=== PATIENT | female | born 1970 | race Caucasian/White ===

== ENCOUNTER 2019-03-19 15:04 | Emergency (ER) | payer MEDICAID ==
[~2019-03-19] VITALS: Ht 162.6 cm; Wt 63.5 kg
[2019-03-19 15:19] VITALS: BP 149/80; PULSE 83; RESP 16; Ht 162.6 cm; Wt 63.5 kg
--- NOTE | 2019-03-19 16:53 | ERD ---
ER Documentation Chief Complaint Chief Complaint EVALUATION FOR LUMP UNDER LT ARM HPI Patient is a 48-year-old female with no medical problems who presents with swelling under her left armpit. She has had this for about 1 month. She denies fevers. She denies pain. She has had no discharge from the area. She said that she has never had a mammogram. She says that her primary doctor is Dr. Howe. Dr. Howe had called and spoke to my partner and recommended imaging studies in case this is a cancerous lesion. ROS All systems reviewed and are negative except as per history of present illness. PMhx/Soc Medical and Surgical Hx: pt denies Medical Hx, pt denies Surgical Hx Hx Alcohol Use: No Hx Substance Use: No Hx Tobacco Use: No FmHx Family History: No diabetes Physical Exam Vitals Vital Signs Date Temp Pulse Resp B/P (MAP) Pulse Ox O2 O2 Flow FiO2 Time Delivery Rate 03/19/19 98.9 83 16 149/80 99 15:19 (103) Physical Exam Const: No acute distress Head: Atraumatic Eyes: Normal Conjunctiva ENT: Normal External Ears, Nose and Mouth. Neck: Full range of motion. No meningismus. Resp: Clear to auscultation bilaterally Cardio: Regular rate and rhythm, no murmurs Abd: Soft, non tender, non distended. Normal bowel sounds Skin: Soft tissue swelling approximately 1 cm x 1 cm underneath the left armpit, no fluctuance, no redness, no hardness Back: No midline or flank tenderness Ext: No cyanosis, or edema Neur: Awake and alert Psych: Normal Mood and Affect Procedures/MDM Patient is a 48-year-old female with no medical problems who presents with a soft tissue mass under her left armpit. She has never had a mammogram and I believe this would likely be a good idea for her to rule out breast cancer. I did offer her the CT scan of the chest as well as an ultrasound which I ordered but the patient is adamantly refusing at this time and would like to go home. She said that she does not want to wait the 2 hours for these test to be performed and said that she is hungry wants to go home and eat. I resulted Dr. Howe to let him know of the patient's decision. The patient can return for any worsening symptoms. I do believe that outpatient work-up would be appropriate. Departure Diagnosis: Primary Impression: Swelling Condition: Fair Patient Instructions: Breast Mass, Uncertain Cause Referrals: ALLISON HOWE MD Additional Instructions: Call your primary care doctor TOMORROW for an appointment during the next 1 WEEK.Tell the psychiatric secretary that you were referred from this facility.See the doctor sooner or return here if your condition worsens before your appointment time. THERESA BERMUDEZ MD Mar 19, 2019 16:53
== END 2019-03-19 16:34 | disposition home or self-care (01) ==
LOC: FTE 15:04
DX: R22.32 Localized swelling, mass and lump, left upper limb (principal)
CPT/HCPCS: 99282